=== PATIENT | male | born 1990 | race African-American/Black ===

== ENCOUNTER 2020-04-14 17:32 | Emergency (ER) | payer MEDICAID ==
[~2020-04-14] VITALS: Ht 165.1 cm; Wt 50.0 kg
[2020-04-14] MEDS ORDERED: IBUPROFEN 400MG TABLET PO ONE (21:15)
[2020-04-14] MEDS ORDERED: NITROGLYCERIN 0.4MG TABLET SL SL PRN (22:30)
[2020-04-14] MEDS ORDERED: ASPIRIN 81MG TABLET PO ONE (22:30)
[2020-04-14 23:26] LABS: BASOPHILS % 0.9 % (0.0-2.0); EOSINOPHILS % 1.6 % (0.0-5.0); HEMATOCRIT. 43.8 % (42.0-52.0); HEMOGLOBIN. 14.7 g/dL (14.0-18.0); LYMPHOCYTES % 44.1 % (20.0-50.0); MEAN CORPUSCULAR HEMOGLOBIN 27.4 pg (28.0-32.0); MEAN CORPUSCULAR VOLUME 81.3 fL (80.0-94.0); MEAN PLATELET VOLUME 7.1 fl (7.4-10.4); MONOCYTES % 9.3 % (2.0-8.0); NEUTROPHILS % 44.1 % (40.0-76.0); PLATELET 250 x1000/uL (130-400); RED BLOOD CELL COUNT 5.38 mill/uL (4.7-6.1); RED CELL DISTRIBUTION WIDTH 12.8 % (11.6-14.6)
[2020-04-14 23:31] LABS: CHLORIDE 105 mEq/L (98-107)
[2020-04-15 03:40] VITALS: BP 128/80
== END 2020-04-15 04:26 | disposition home or self-care (01) ==
LOC: ER 17:32
DX: R07.89 Other chest pain (principal)
CPT/HCPCS: 36415; 71045; 80053; 83880; 84484; 85025; 85379; 93005; 99285; Z7610

== ENCOUNTER 2021-05-20 21:25 | Emergency (ER) | payer MEDICAID ==
[~2021-05-20] VITALS: Ht 165.1 cm; Wt 53.0 kg
[2021-05-20 21:32] VITALS: BP 131/88
[2021-05-21] MEDS ORDERED: NAPR-681 PO (03:22)
== END 2021-05-21 03:40 | disposition home or self-care (01) ==
LOC: ER 21:25
DX: M94.0 Chondrocostal junction syndrome [Tietze] (principal); R00.2 Palpitations
CPT/HCPCS: 71045; 93005; 99283

== ENCOUNTER 2021-11-01 21:35 | Emergency (ER) | payer MEDICAID ==
[~2021-11-01] VITALS: Ht 165.1 cm; Wt 57.0 kg
[~2021-11-01 21:35] MED LIST: NAPR-681 PO
[2021-11-01 21:59] VITALS: BP 131/85
[2021-11-02] MEDS ORDERED: HYDROCODONE/ACETAMINOPHEN 5/325MG TABLET PO STA (01:24)
[2021-11-02] MEDS ORDERED: SODIUM CHLORIDE 0.9% 1,000 ML IV ONE (01:30)
[2021-11-02 02:29] LABS: BASOPHILS % 0.8 % (0.0-2.0); EOSINOPHILS % 1.6 % (0.0-5.0); HEMATOCRIT. 43.9 % (42.0-52.0); HEMOGLOBIN. 14.4 g/dL (14.0-18.0); LYMPHOCYTES % 45.5 % (20.0-50.0); MEAN CORPUSCULAR HEMOGLOBIN 26.8 pg (28.0-32.0); MEAN PLATELET VOLUME 8.5 fl (7.4-10.4); MONOCYTES % 10.1 % (2.0-8.0); PLATELET 230 x1000/uL (130-400); RED BLOOD CELL COUNT 5.36 mill/uL (4.7-6.1); RED CELL DISTRIBUTION WIDTH 13.1 % (11.6-14.6)
[2021-11-02] MEDS ORDERED: ACETAMINOPHEN 325MG TABLET PO ONE (02:30)
[2021-11-02 02:31] LABS: CHLORIDE 107 mEq/L (98-107)
[2021-11-02 05:58] LABS: CLARITY URINE CLEAR (CLEAR); COLOR URINE YELLOW (YELLOW); KETONES URINE TRACE (NEGATIVE); LEUKOCYTE ESTERASE URINE NEGATIVE (NEGATIVE); NITRITE URINE NEGATIVE (NEGATIVE); OCCULT BLOOD URINE NEGATIVE (NEGATIVE); PH URINE 6.5 (4.5-8.0); PROTEIN URINE NEGATIVE (NEGATIVE); SPECIFIC GRAVITY URINE 1.028 (1.005-1.030)
[2021-11-02] MEDS ORDERED: IBUP-2028 MT (06:03)
== END 2021-11-02 06:10 | disposition home or self-care (01) ==
LOC: ER 21:35
DX: R07.89 Other chest pain (principal)
CPT/HCPCS: 36415; 71045; 80053; 81003; 83605; 83690; 84484; 85025; 96360; 99284; J7030